=== PATIENT | male | born 1985 ===

== ENCOUNTER 2019-09-14 00:45 | Emergency (ER) | payer SELFPAY ==
[~2019-09-14] VITALS: Ht 170.2 cm; Wt 75.0 kg
--- NOTE | 2019-09-14 00:57 | NUR ---
Patient refusing to answer any questions or allow us to get vitals.
--- NOTE | 2019-09-14 02:10 | NUR ---
Discharge instructions given to law enforcement. Patient not receptive to staff. Patient in custody.
== END 2019-09-14 02:12 ==
LOC: ED 02:05
DX: S80.211A Abrasion, right knee, initial encounter (principal); S80.212A Abrasion, left knee, initial encounter; G89.11 Acute pain due to trauma; X58.XXXA Exposure to other specified factors, initial encounter; Y93.89 Activity, other specified; Y92.89 Other specified places as the place of occurrence of the external cause; Y99.8 Other external cause status
CPT/HCPCS: 36415; 86705; 86706; 86803; 87340; 87806; 99283; G0475